=== PATIENT | female | born 1995 | race Native Hawaiian/Other Pacific Islander ===

== ENCOUNTER 2018-11-03 14:56 | Observation (INO) | payer OTHER ==
[2018-11-03] MEDS ORDERED: Sodium Chloride 0.9% 1,000 ML IV STA (15:18)
--- NOTE | 2018-11-03 15:33 | ED PDOC ---
HPI: Female Pain Time Seen by Provider: 11/03/18 15:17 Chief Complaint (Nursing): Female Genitourinary Chief Complaint (Provider): Vaginal bleeding Additional Complaint(s): 23 year old female, sent by [facility] after bloodwork showed hemoglobin of 5.6, presents to the ED complaining of vaginal bleeding for the past 2 weeks. Patient reports she has been using 10 pads a day. She also reports having dizziness but denies abdominal pain. She states she has had heavy vaginal bleeding in the past and had blood transfusion in [place] 2 years ago. PMD: [facility] Past Medical History Reviewed: Historical Data, Nursing Documentation, Vital Signs Vital Signs: Last Vital Signs Temp 99.2 F 11/03/18 15:07 Pulse 110 H 11/03/18 15:07 Resp 18 11/03/18 15:07 BP 157/100 H 11/03/18 15:07 Pulse Ox 99 11/03/18 15:07 - Medical History PMH: Hypothyroidism - Surgical History Other surgeries: Leg procedure - Family History Family History: States: Unknown Family Hx - Social History Current smoker - smoking cessation education provided: No Alcohol: None Drugs: Denies - Home Medications Home Medications: Ambulatory Orders Medication Instructions Recorded Ferrous Sulfate [Feosol] 325 mg PO BID #60 tab 11/04/18 Levothyroxine [Synthroid] 75 mcg PO DAILY@0630 #30 tab 11/04/18 MedroxyPROGESTERone [Provera] 10 mg PO DAILY 10 Days #10 tab 11/04/18 - Allergies Allergies/Adverse Reactions: Allergies Allergy/AdvReac Type Severity Reaction Status Date / Time No Known Allergies Allergy Verified 11/03/18 15:11 Review of Systems ROS Statement: Except As Marked, All Systems Reviewed And Found Negative Gastrointestinal: Negative for: Abdominal Pain Genitourinary Female: Positive for: Vaginal Bleeding Neurological: Positive for: Dizziness Physical Exam - Reviewed Nursing Documentation Reviewed: Yes Vital Signs Reviewed: Yes - Physical Exam Appears: Positive for: Non-toxic, No Acute Distress Head Exam: Positive for: ATRAUMATIC, NORMOCEPHALIC Skin: Positive for: Pallor Eye Exam: Positive for: Normal appearance Neck: Positive for: Normal, Painless ROM Cardiovascular/Chest: Positive for: Regular Rate, Rhythm (Regular rhythm), Tachycardia Respiratory: Positive for: Normal Breath Sounds. Negative for: Wheezing, Respiratory Distress Gastrointestinal/Abdominal: Positive for: Normal Exam, Soft. Negative for: Te nderness Extremity: Positive for: Normal ROM Neurologic/Psych: Positive for: Alert, Oriented (x3). Negative for: Motor/Sensory Deficits - Laboratory Results Result Diagrams: 11/04/18 08:30 11/04/18 08:30 - ECG O2 Sat by Pulse Oximetry: 99 (RA) Pulse Ox Interpretation: Normal Medical Decision Making Medical Decision Making: Initial Impression: Menorrhagia and anemia Initial Plan: --ABO/RH type stat --Type and screen stat --ECG --CMP --ED urine --ED urine dipstick --CBC --PTT --Prothrombin time --Sodium chloride 1000mL IV --Urinalysis Scribe Attestation: Documented by Hubert Davila acting as a scribe for Amber English MD. Provider Scribe Attestation: All medical record entries made by the Scribe were at my direction and personally dictated by me. I have reviewed the chart and agree that the record accurately reflects my personal performance of the history, physical exam, medical decision making, and the department course for this patient. I have also personally directed, reviewed, and agree with the discharge instructions and disposition. Disposition - Clinical Impression Clinical Impression: Symptomatic anemia, Menorrhagia - Patient ED Disposition Is Patient to be Admitted: Yes - Disposition Disposition Time: 17:45 Condition: GUARDED - Pt Status Changed To: Hospital Disposition Of: Observation - POA Present On Arrival: None
[2018-11-03 16:15] LABS: SQUAMOUS EPITHIAL 1 /hpf (0-5); URINE BACTERIA RARE (<OCC); URINE BILIRUBIN NEGATIVE (NEGATIVE); URINE BLOOD LARGE (NEGATIVE); URINE CLARITY CLOUDY (Clear); URINE COLOR YELLOW (YELLOW); URINE GLUCOSE (UA) NEG (NEGATIVE); URINE LEUKOCYTE ESTERASE NEG Leu/uL (Negative); URINE PROTEIN 100 mg/dL (NEGATIVE); URINE UROBILINOGEN 0.2-1.0 mg/dL (0.2-1.0)
[2018-11-03 16:42] LABS: BASO % 0.2 % (0.0-2.0); EOS # 0.2 K/uL (0.0-0.7); EOS % 2.8 % (0.0-4.0); HEMOGLOBIN 7.5 g/dL (12.0-16.0); LYMPH # 2.5 K/uL (1.0-4.3); LYMPH % 29.8 % (20.0-40.0); MEAN CELL VOLUME 82.1 fl (81.0-99.0); MEAN CORPUSCULAR HEMOGLOBIN 26.2 pg (27.0-31.0); MEAN CORPUSCULAR HGB CONC 31.9 g/dL (33.0-37.0); MEAN PLATELET VOLUME 8.4 fl (7.2-11.7); MONO # 0.5 K/uL (0.0-0.8); MONO % 6.6 % (0.0-10.0); NEUT % 60.6 % (50.0-75.0); RBC 2.85 Mil/uL (3.80-5.20); RED CELL DISTRIBUTION WIDTH 20.9 % (11.5-14.5); WHITE BLOOD COUNT 8.3 K/uL (4.8-10.8)
[2018-11-03 16:48] LABS: PROTHROMBIN TIME 11.7 Seconds (9.8-13.1)
[2018-11-03 16:51] LABS: PARTIAL THROMBOPLASTIN TIME 32.4 Seconds (25.6-37.1)
[2018-11-03 16:54] LABS: ALB/GLOB RATIO 1.2 (1.0-2.1); ALBUMIN 4.2 g/dL (3.5-5.0); ALT/SGPT 46 U/L (9-52); AST/SGOT 44 U/L (14-36); BLOOD UREA NITROGEN 9 mg/dl (7-17); GFR NON-AFRICAN AMERICAN > 60
--- NOTE | 2018-11-03 18:57 | US ---
Date of service: 11/03/2018 HISTORY: Menorrhagia LMP 10/21/2018. COMPARISON: None TECHNIQUE: Transabdominal only. Real-time technique with 2D, duplex and color Doppler FINDINGS: UTERUS: Measures 4.3 x 5.2 x 8.7 cm. Normal in size and appearance. No fibroid or other mass lesion seen. ENDOMETRIUM: Measures 23.6 mm in diameter. Markedly thickened heterogeneous endometrium. Hyperechoic foci within the endometrium measures 7 x 12 mm. Vascularity identified with respect to this finding. Likely endometrial polyp. Trace fluid in the endometrial canal. This appears to be complex likely hemorrhagic fluid CERVIX: . RIGHT OVARY: Measures 1.5 x 2 x 3.6 cm. No solid mass. Normal flow. LEFT OVARY: Measures 2.5 x 2.8 x 4.5 cm. Complex cyst 2.8 x 2.5 cm. Normal flow. FREE FLUID: No significant free fluid noted. OTHER FINDINGS: None. IMPRESSION: Markedly thickened irregular heterogeneous endometrial echo complex. Likely endometrial polyp. Fluid/debris/products of hemorrhage noted within the endometrial canal.
[2018-11-04] MEDS: Levothyroxine 50 MCG TAB PO SCH ×2 (05:36→08:54)
[2018-11-04 08:47] LABS: HEMOGLOBIN 8.9 g/dL (12.0-16.0); MEAN CELL VOLUME 86.2 fl (81.0-99.0); MEAN CORPUSCULAR HGB CONC 33.7 g/dL (33.0-37.0); RBC 3.05 Mil/uL (3.80-5.20); RED CELL DISTRIBUTION WIDTH 20.9 % (11.5-14.5); WHITE BLOOD COUNT 10.2 K/uL (4.8-10.8)
[2018-11-04] MEDS ORDERED: NORETHINDRONE E ESTRADIOL IRON PO SCH (09:00)
[2018-11-04 09:07] LABS: ALB/GLOB RATIO 1.1 (1.0-2.1); ALBUMIN 3.6 g/dL (3.5-5.0); ALT/SGPT 46 U/L (9-52); AST/SGOT 34 U/L (14-36); BLOOD UREA NITROGEN 10 mg/dl (7-17); CALCIUM 8.3 mg/dL (8.4-10.2); GFR NON-AFRICAN AMERICAN > 60
--- NOTE | 2018-11-04 09:08 | CARD ---
APPROVED REPORT Date of service: 11/03/2018 EKG Measurement Heart [id number] <Conclusion> Sinus tachycardia Otherwise normal ECG
[2018-11-04 15:43] VITALS: RESP 17
[2018-11-04 19:40] VITALS: BP 122/82; TEMP 98.3
--- NOTE | 2018-11-04 20:33 | CP.PCM.CON ---
<Arely Luevano - Last Filed: 11/04/18 20:27> History of Present Illness - History of Present Illness History of Present Illness: Ms. Montague is a 23 year old G0 admitted to the hospital for acute blood loss anemia secondary to dysfunctional uterine bleeding. OBGYN was consulted for further management recommendations. Ms. Montague describes a history of heavy periods every since menarche, with one previous blood transfusion needed a few years ago while she was living in [place]. For the last 1-2 years she has been taking Lo Loestrin Fe in an attempt to regular her bleeding. She feels that it was working well until recently. She has been bleeding heavily for the last 14 days, going through a pad every 1-2 hours consistently. For the last 1-2 days she has been experiencing fatigue and dizziness. She went to [facility] yesterday where her Hgb was reportedly 5.6, and she was transferred to the ED. Here her Hgb was found to be 7.5, but she was given 2 units due to her reported symptoms. Today she reports that she is feeling much better, but does continue to have vaginal bleeding. She has not seen an OBGYN here in [place] recently. Review of Systems - Constitutional Constitutional: As Per HPI - Cardiovascular Cardiovascular: absent: Chest Pain, Dyspnea - Respiratory Respiratory: absent: Dyspnea, Dyspnea on Exertion - Gastrointestinal Gastrointestinal: Cramping. absent: Constipation, Diarrhea, Dyspepsia - Genitourinary Genitourinary: As Per HPI - Reproductive: Female Reproductive:Female: As Per HPI Past Patient History - Past Medical History & Family History Past Medical History?: Yes - Past Social History Smoking Status: Never Smoked - CARDIAC Hx Cardiac Disorders: No - PULMONARY Hx Respiratory Disorders: No - NEUROLOGICAL Hx Neurological Disorder: No - HEENT Hx HEENT Problems: No - RENAL Hx Chronic Kidney Disease: No - ENDOCRINE/METABOLIC Hx Endocrine Disorders: Yes Hx Hypothyroidism: Yes - HEMATOLOGICAL/ONCOLOGICAL Hx Blood Disorders: Yes Hx Anemia: Yes - INTEGUMENTARY Hx Dermatological Problems: No - MUSCULOSKELETAL/RHEUMATOLOGICAL Hx Musculoskeletal Disorders: No Hx Falls: No - GASTROINTESTINAL Hx Gastrointestinal Disorders: No - GENITOURINARY/GYNECOLOGICAL Hx Genitourinary Disorders: No - PSYCHIATRIC Hx Psychophysiologic Disorder: No Hx Substance Use: No - SURGICAL HISTORY Hx Surgeries: No - ANESTHESIA Hx Anesthesia: Yes Hx Anesthesia Reactions: No Hx Malignant Hyperthermia: No Has any member of the family had a problem w/ anesthesia?: No Meds Home Medications: Home Medication List Medication Instructions Recorded Confirmed Type Ferrous Sulfate [Feosol] 325 mg PO BID #60 tab 11/04/18 Rx MedroxyPROGESTERone [Provera] 10 mg PO DAILY 10 Days #10 tab 11/04/18 Rx RX: Levothyroxine [Synthroid] 75 mcg PO DAILY@0630 #30 tab 11/04/18 Rx Allergies/Adverse Reactions: Allergies Allergy/AdvReac Type Severity Reaction Status Date / Time No Known Allergies Allergy Verified 11/03/18 15:11 - Medications Medications: Current Medications Home Med (Norethindrone-E.Estradiol-Iron [Lo Loestrin Fe 1-10 Tablet]) 1 tab PO DAILY LATOSHA Levothyroxine Sodium (Synthroid) 75 mcg PO DAILY@0630 [facility] Physical Exam - Constitutional Appears: Well - Eye Exam Eye Exam: EOMI, Normal appearance, PERRL. absent: Conjunctival injection - Neck Exam Neck exam: Positive for: Normal Inspection - Respiratory Exam Respiratory Exam: NORMAL BREATHING PATTERN - GI/Abdominal Exam GI & Abdominal Exam: Soft. absent: Firm, Guarding, Tenderness Results - Vital Signs Recent Vital Signs: Last Vital Signs Temp 98.3 F 11/04/18 19:39 Pulse 88 11/04/18 19:39 Resp 17 11/04/18 19:39 BP 122/82 11/04/18 19:39 Pulse Ox 98 11/04/18 19:39 - Labs Result Diagrams: 11/04/18 08:30 11/04/18 08:30 Labs: Laboratory Results - last 24 hr 11/03/18 11/04/18 11/04/18 15:22 08:30 08:30 WBC 10.2 RBC 3.05 L Hgb 8.9 L Hct 26.3 L MCV 86.2 D MCH 29.0 MCHC 33.7 RDW 20.9 H Plt Count 326 Sodium 137 Potassium 3.8 Chloride 101 Carbon Dioxide 24 Anion Gap 16 BUN 10 Creatinine 0.5 L Est GFR ( Amer) > 60 Est GFR (Non-Af Amer) > 60 Random Glucose 93 Calcium 8.3 L Total Bilirubin 0.4 AST 34 ALT 46 Alkaline Phosphatase 71 Total Protein 6.8 Albumin 3.6 Globulin 3.3 Albumin/Globulin Ratio 1.1 TSH 3rd Generation 11.70 H Serum HCG, Qual Blood Type A POSITIVE Antibody Screen Negative Crossmatch See Detail BBK History Checked No verified bt 11/04/18 11:09 WBC RBC Hgb Hct MCV MCH MCHC RDW Plt Count Sodium Potassium Chloride Carbon Dioxide Anion Gap BUN Creatinine Est GFR ( Amer) Est GFR (Non-Af Amer) Random Glucose Calcium Total Bilirubin AST ALT Alkaline Phosphatase Total Protein Albumin Globulin Albumin/Globulin Ratio TSH 3rd Generation Serum HCG, Qual Negative Blood Type Antibody Screen Crossmatch BBK History Checked Assessment & Plan (1) Menorrhagia Assessment and Plan: 23 year old G0 patient with a history of heavy periods since menarche admitted for blood transfusion due to 14 days of heavy menstrual bleeding - Recommend a 10 day course of 10mg of Provera - Patient was given the information for 2 OBGYN offices in [place] to discuss a better group home treatment to regular her periods - Her elevated TSH may also be contributing to her prolonged bleeding, I would recommend she sees her PCP and has her Synthroid titrated Status: Acute (2) Symptomatic anemia Status: Acute - Assessment and Plan (Free Text) Assessment: - Recommend patient take OTC iron supplements for the next several weeks Thank you for the opportunity to consult on this patient. <Nikita Fong O - Last Filed: 11/06/18 14:39> Results - Vital Signs Recent Vital Signs: Last Vital Signs Temp 98.3 F 11/04/18 19:39 Pulse 97 H 11/04/18 21:00 Resp 17 11/04/18 19:39 BP 122/82 11/04/18 19:39 Pulse Ox 98 11/04/18 19:39 - Labs Result Diagrams: 11/04/18 08:30 11/04/18 08:30 Attending/Attestation - Attestation I have fully participated in the care of the patient.: Yes I have reviewed all pertinent clinical information: Yes
--- NOTE | 2018-11-04 21:13 | CP.PCM.HP ---
History of Present Illness - History of Present Illness History of Present Illness: pt admitted for vaginal bleeding an symptomatic anemia at pres[facility] without complaints s/p 2 units prbc and clesred by obgyn all bw and imaging noted sumthroid titrated for eev cristian Past Patient History - Past Medical History & Family History Past Medical History?: Yes - Past Social History Smoking Status: Never Smoked - CARDIAC Hx Cardiac Disorders: No - PULMONARY Hx Respiratory Disorders: No - NEUROLOGICAL Hx Neurological Disorder: No - HEENT Hx HEENT Problems: No - RENAL Hx Chronic Kidney Disease: No - ENDOCRINE/METABOLIC Hx Endocrine Disorders: Yes Hx Hypothyroidism: Yes - HEMATOLOGICAL/ONCOLOGICAL Hx Blood Disorders: Yes Hx Anemia: Yes - INTEGUMENTARY Hx Dermatological Problems: No - MUSCULOSKELETAL/RHEUMATOLOGICAL Hx Musculoskeletal Disorders: No Hx Falls: No - GASTROINTESTINAL Hx Gastrointestinal Disorders: No - GENITOURINARY/GYNECOLOGICAL Hx Genitourinary Disorders: No - PSYCHIATRIC Hx Psychophysiologic Disorder: No Hx Substance Use: No - SURGICAL HISTORY Hx Surgeries: No - ANESTHESIA Hx Anesthesia: Yes Hx Anesthesia Reactions: No Hx Malignant Hyperthermia: No Has any member of the family had a problem w/ anesthesia?: No Meds Home Medications: Home Medication List Medication Instructions Recorded Confirmed Type Ferrous Sulfate [Feosol] 325 mg PO BID #60 tab 11/04/18 Rx Levothyroxine [Synthroid] 75 mcg PO DAILY@0630 #30 tab 11/04/18 Rx MedroxyPROGESTERone [Provera] 10 mg PO DAILY 10 Days #10 tab 11/04/18 Rx Allergies/Adverse Reactions: Allergies Allergy/AdvReac Type Severity Reaction Status Date / Time No Known Allergies Allergy Verified 11/03/18 15:11 Results - Vital Signs Recent Vital Signs: Last Vital Signs Temp 98.3 F 11/04/18 19:39 Pulse 88 11/04/18 19:39 Resp 17 11/04/18 19:39 BP 122/82 11/04/18 19:39 Pulse Ox 98 11/04/18 19:39 - Labs Result Diagrams: 11/04/18 08:30 11/04/18 08:30 Labs: Laboratory Results - last 24 hr 11/03/18 11/04/18 11/04/18 15:22 08:30 08:30 WBC 10.2 RBC 3.05 L Hgb 8.9 L Hct 26.3 L MCV 86.2 D MCH 29.0 MCHC 33.7 RDW 20.9 H Plt Count 326 Sodium 137 Potassium 3.8 Chloride 101 Carbon Dioxide 24 Anion Gap 16 BUN 10 Creatinine 0.5 L Est GFR ( Amer) > 60 Est GFR (Non-Af Amer) > 60 Random Glucose 93 Calcium 8.3 L Total Bilirubin 0.4 AST 34 ALT 46 Alkaline Phosphatase 71 Total Protein 6.8 Albumin 3.6 Globulin 3.3 Albumin/Globulin Ratio 1.1 TSH 3rd Generation 11.70 H Serum HCG, Qual Blood Type A POSITIVE Antibody Screen Negative Crossmatch See Detail BBK History Checked No verified bt 11/04/18 11:09 WBC RBC Hgb Hct MCV MCH MCHC RDW Plt Count Sodium Potassium Chloride Carbon Dioxide Anion Gap BUN Creatinine Est GFR ( Amer) Est GFR (Non-Af Amer) Random Glucose Calcium Total Bilirubin AST ALT Alkaline Phosphatase Total Protein Albumin Globulin Albumin/Globulin Ratio TSH 3rd Generation Serum HCG, Qual Negative Blood Type Antibody Screen Crossmatch BBK History Checked
[2018-11-05 00:35] VITALS: PULSE 97
[2018-11-05] MEDS ORDERED: Levothyroxine 75 MCG TAB PO SCH (06:30)
[2018-11-07 13:32] VITALS: O2SAT 99
== END 2018-11-04 22:40 | disposition home or self-care (01) ==
LOC: H.ER 14:56 → H.ERHOLD 17:34 → UNDOADMIN 17:34 → H.ERHOLD 17:34 → H.TEL 18:57
PROVIDERS: ADMIT Family Medicine; ATTEND Family Medicine
DX: D62 Acute posthemorrhagic anemia (principal); N92.0 Excessive and frequent menstruation with regular cycle; E03.9 Hypothyroidism, unspecified; R79.1 Abnormal coagulation profile
CPT/HCPCS: 36415; 36430; 76856; 80053; 81003; 81025; 84443; 84703; 85025; 85027; 85610; 85730; 86850; 86900; 86920; 93005; 96360; 99283; G0378; J7030; P9051